=== PATIENT | female | born 2000 | race Caucasian/White ===

== ENCOUNTER 2023-10-11 22:28 | Emergency (ER) | payer OTHER, SELFPAY ==
--- NOTE | 2023-10-11 | ECG_ITS ---
Test Reason : dizziness Blood Pressure : / mmHG Vent. Rate : 109 BPM Atrial Rate : 109 BPM P-R Int : 132 ms QRS Dur : 080 ms QT Int : 338 ms P-R-T Axes : 060 055 028 degrees QTc Int : 455 ms Sinus tachycardia Nonspecific T wave abnormality Abnormal ECG No previous ECGs available Referred By: Generic ED Physician Electronically Signed By:PATY OLSEN MD
--- NOTE | ~2023-10-11 | XR_ITS ---
EXAMINATION: XR CHEST CLINICAL INFORMATION: Chest pain. Shortness of breath. COMPARISON: None available. TECHNIQUE: 2 views of the chest were obtained. FINDINGS: No significant abnormality is noted involving the heart, lungs, mediastinum, bony thorax or soft tissues. XR/XR chest 2V IMPRESSION: Unremarkable examination.
[2023-10-11 22:36] VITALS: BP 129/87; PULSE 114; RESP 18; TEMP 36.9; O2SAT 97; BMI 22.8
[2023-10-11 23:04] LABS: Basophils Percent Auto 0.3 % (0-2); Eosinophils Absolute Auto 0.1 X10*3/uL (0.0-0.4); Eosinophils Percent Auto 0.9 % (0-4); Imm Gran Abs Auto 0.02 X10*3/uL (0.00-0.03); Imm Gran Pct Auto 0.2 % (0.0-0.4); Lymphocytes Absolute Auto 1.9 X10*3/uL (1.2-4.9); Lymphocytes Percent Auto 15.9 % (20-40); MANUAL DIFF FLAG NO; Mean Corpuscular HGB Conc 36.1 g/dl (31.0-35.0); Mean Corpuscular Hemoglobin 31.4 pg (27.0-33.0); Mean Platelet Volume 11.5 fL (9.4-12.3); Monocytes Percent Auto 7.9 % (2-11); Neutrophils Absolute Auto 9.1 x10*3/uL (2.0-8.3); Neutrophils Percent Auto 74.8 % (45-73); Platelet Count 223 X10*3/uL (160-400); Red Blood Count 4.14 X10*6/uL (4.20-5.50); Red Cell Distribution Width 12.3 % (11.0-16.0); White Blood Count 12.2 X10*3/uL (4.8-10.8)
[2023-10-11 23:18] LABS: Alanine Aminotransferase 9 U/L (0-31); Albumin Level 4.3 g/dL (3.5-5.0); Alkaline Phosphatase 66 U/L (39-117); Anion Gap 11 (12-20); Aspartate Amino Transferase 16 U/L (5-31); Bilirubin Direct < 0.2 mg/dL (0.0-0.5); Bilirubin Total 0.2 mg/dL (0.0-1.0); Blood Urea Nitrogen 10 mg/dL (9-16); Calcium 8.9 mg/dL (8.4-10.2); Carbon Dioxide 26 mmol/L (22-29); Chloride 107 mmol/L (96-108); Creatinine Clr Calc Pharmacy 79.4; Estimated Glomerular Filt Rate > 60; Glucose Random 140 mg/dL (60-115); Lipase 20 U/L (8-78); Potassium 3.7 mmol/L (3.3-5.1); Sodium 140 mmol/L (135-145); Total Protein 6.9 g/dL (6.5-8.0)
[2023-10-11 23:24] LABS: UPreg QC Valid YES; Urine Pregnancy NEGATIVE (NEGATIVE)
[2023-10-11 23:25] LABS: Troponin-I High Sensitivity 4.7 ng/L (<3.5-17.0)
[2023-10-12 02:39] VITALS: BP 136/86; PULSE 98; RESP 18; O2SAT 99
--- NOTE | 2023-10-12 06:04 | ED.GENADULT ---
HPI - General Adult General Chief complaint: Anxiety Stated complaint: panic attack earlier, feels like she swallowed air Time Seen by Provider: 10/12/23 06:04 History of Present Illness ED Provider: Grey RAYMUNDO narrative: The patient is a 23-year-old female who says that she had an episode at work this afternoon which she found highly unpleasant. She says that she got yelled at at work. This made her feel very bad and caused her to have a panic attack apparently. She says that she may have swallowed a lot of air during the panic attack and she has since had a sense of feeling like areas trapped in her throat. She says that occasionally she belches and has a transient sense of relief. However the relief is transient and she subsequently feels a pressure building in her throat again that worsens until she belches again. She says that she felt short of breath earlier and still feels short of breath when she lies flat. Overall she is feeling somewhat better but not completely better. The patient says that she is on Lexapro, Wellbutrin, and prazosin. She says that she has an IUD. She says that despite having the IUD she has episodes of significant vaginal bleeding and is often prescribed courses of a control pill for her vaginal bleeding. She is currently taking control pills which she started last week. 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 She has a mildly anxious affect but she does not seem in acute distress. HENMT Other: Face is symmetrical. Mucous membranes are moist. The pharynx is normal. Eyes Other: Pupils are round, equal, and reactive to light, extraocular movements are intact, conjunctivae are clear Neck Other: No significant neck tenderness. No subcutaneous emphysema or crepitus. Chest Other: No chest wall crepitus or tenderness Resp Effort & Inspection: normal respiratory effort Auscultation: clear to auscultation bilaterally Cardio Rate: regular rate Rhythm: regular rhythm Heart sounds: S1 normal heart sound present and S2 normal heart sound present GI Other: Abdomen is soft and nontender Skin Other: Skin is dry and unremarkable, no rash Neuro Other: The patient is awake and alert with a normal mental status. She moves all extremities normally. She is grossly neurologically intact. Extrem Other: No calf swelling or tenderness. Medications Administered Discontinued Medications Generic Name Dose Route Start Last Admin Trade Name Freq PRN Reason Stop Dose Admin Sucralfate 1 gm 10/12/23 06:59 10/12/23 07:17 Sucralfate Oral Suspension 1 Gm/10 Ml Oral.Susp PO 10/12/23 07:00 1 gm ONCE ONE Administration Medical Decision Making Medical Decision Making [facility] Narrative: The patient presents with chest and neck symptoms following what she describes as a panic attack after a stressful event at work. There is no sign of a pneumothorax. She has a negative DVT ultrasound. Clinically she looks well. I think she may be discharged. Lab Data 10/11/23 23:00 10/11/23 23:00 Labs: Lab Results 10/11/23 10/11/23 10/12/23 Range/Units 23:00 23:06 06:36 WBC 12.2 H (4.8-10.8) X10*3/uL RBC 4.14 L (4.20-5.50) X10*6/uL Hgb 13.0 (12.0-16.0) g/dl Hct 36.0 L (37.0-47.0) % MCV 87.0 (80.0-98.0) fL MCH 31.4 (27.0-33.0) pg MCHC 36.1 H (31.0-35.0) g/dl RDW 12.3 (11.0-16.0) % Plt Count 223 (160-400) X10*3/uL MPV 11.5 (9.4-12.3) fL Immature Gran % (Auto) 0.2 (0.0-0.4) % Neut % (Auto) 74.8 H (45-73) % Lymph % (Auto) 15.9 L (20-40) % Jerome % (Auto) 7.9 (2-11) % Eos % (Auto) 0.9 (0-4) % Baso % (Auto) 0.3 (0-2) % Lymph # (Auto) 1.9 (1.2-4.9) X10*3/uL Jerome # (Auto) 1.0 (0.1-1.2) X10*3/uL Eos # (Auto) 0.1 (0.0-0.4) X10*3/uL Baso # (Auto) 0.0 (0.0-0.2) X10*3/uL Abs Immat Gran (auto) 0.02 (0.00-0.03) X10*3/uL Absolute Neuts (auto) 9.1 H (2.0-8.3) x10*3/uL Absolute Nucleated RBC 0.000 (0.0-0.012) X10*3/uL Nucleated RBC % (auto) 0.0 (0.0-0.2) /100WBC D-Dimer High Sensitivty < 150 NG/ML Sodium 140 (135-145) mmol/L Potassium 3.7 (3.3-5.1) mmol/L Chloride 107 (96-108) mmol/L Carbon Dioxide 26 (22-29) mmol/L Anion Gap 11 L (12-20) BUN 10 (9-16) mg/dL Creatinine 1.00 (0.5-1.4) mg/dL Estim Creat Clear Calc 79.4 Estimated GFR > 60 Random Glucose 140 H (60-115) mg/dL Calcium 8.9 (8.4-10.2) mg/dL Total Bilirubin 0.2 (0.0-1.0) mg/dL Direct Bilirubin < 0.2 (0.0-0.5) mg/dL AST 16 (5-31) U/L ALT 9 (0-31) U/L Alkaline Phosphatase 66 (39-117) U/L Troponin I High Sens 4.7 (<3.5-17.0) ng/L Total Protein 6.9 (6.5-8.0) g/dL Albumin 4.3 (3.5-5.0) g/dL Lipase 20 (8-78) U/L Urine Test NEGATIVE (NEGATIVE) Discharge Plan Discharge Clinical Impression: Panic attack, Painful swallowing Patient Disposition: Home, Self-Care Additional Instructions: Your testing today in the emergency room seems quite reassuring. Please rest and take it easy today. Continue your regular medications. Please plan on contacting your regular doctor's office on Saturday to make an appointment to discuss this episode. If at any point you feel significantly worse, especially if you feel shortness of breath or worsening difficulty swallowing, please return to the emergency room for further evaluation. Referrals: Bart Yu CNP [Nurse Practitioner] - (panic attack, painful swallowing) Interventions: ED Discharge Assessment Last Done: 10/12/23 07:20 Discharge Date/Time: 10/12/23 07:21 Print Language: [place]
[2023-10-12 06:54] LABS: D Dimer High Sensitivity < 150 NG/ML
[2023-10-12] MEDS: Sucralfate Oral Suspension 1 GM/10 ML ORAL.SUSP PO (07:17)
[2023-10-12 07:20] VITALS: BP 136/83; PULSE 98; RESP 18; TEMP 37.1; O2SAT 98
== END 2023-10-12 07:21 | disposition home or self-care (01) ==
PROVIDERS: Emergency Provider Emergency Medicine
DX: F41.0 Panic disorder [episodic paroxysmal anxiety] (principal); J02.9 Acute pharyngitis, unspecified; R06.02 Shortness of breath
CPT/HCPCS: 36415; 71046; 80048; 80076; 81025; 83690; 84484; 85025; 85379; 93005; 99283; 99285

== ENCOUNTER → 2023-10-11 23:04 | Outpatient (BNV) | payer OTHER, SELFPAY | PROVIDERS: Emergency Provider Emergency Medicine; Visit Provider Internal Medicine Cardiovascular Disease | DX: R94.31 Abnormal electrocardiogram [ECG] [EKG] (principal) | CPT/HCPCS: 93010 ==